=== PATIENT | female | born 1980 | race African-American/Black ===

== ENCOUNTER 2018-03-01 10:45 | Emergency (ER) | payer OTHER ==
[~2018-03-01] VITALS: Ht 170.2 cm; Wt 79.4 kg
[2018-03-01] MEDS ORDERED: KETOROLAC TROMETHAMINE 30 MG/ML VIAL IV STA (11:01)
[2018-03-01] MEDS ORDERED: HYDROCODONE/APAP 10MG-325MG TAB PO ONE (11:15)
[2018-03-01] MEDS ORDERED: CYCLOBENZAPRINE HCL 10 MG TAB PO ONE (11:15)
[2018-03-01 11:45] LABS: BASOPHILS % 0.3 % (0.0-1.0); EOSINOPHILS # (AUTO) 0.1 (0.0-0.4); EOSINOPHILS % 1.3 % (0.0-6.0); HEMATOCRIT 33.2 % (34.2-44.1); HEMOGLOBIN 10.5 g/dL (12.0-16.0); LYMPHOCYTES # (AUTO) 2.1 (1.0-3.2); MEAN CORPUSCULAR HEMOGLOBIN 23.4 pg (28-32); MEAN CORPUSCULAR HGB CONC 31.6 g/dL (31-35); MEAN CORPUSCULAR VOLUME 73.9 fL (81-99); MONOCYTES # (AUTO) 0.6 (0.2-0.8); MONOCYTES % 9.2 % (4.4-11.3); NEUTROPHILS # (AUTO) 3.5 (2.1-6.9); PLATELET COUNT 316 x10e3/uL (140-360); RED BLOOD COUNT 4.49 x10e6/uL (3.6-5.1); RED CELL DISTRIBUTION WIDTH 15.9 % (11.7-14.4)
[2018-03-01 12:01] LABS: ALANINE AMINOTRANSFERASE 14 IU/L (0-55); ALBUMIN 3.5 g/dL (3.5-5.0); ALKALINE PHOSPHATASE 62 IU/L (40-150); ANION GAP 11.2 mmol/L (8-16); BLOOD UREA NITROGEN 6 mg/dL (7-26); BUN/CREATININE RATIO 8 (6-25); CARBON DIOXIDE 24 mmol/L (22-29); CHLORIDE 111 mmol/L (98-107); CREATINE KINASE 233 IU/L (29-168); CREATININE, SERUM 0.76 mg/dL (0.57-1.11); EST GLOMERULAR FILTRATION RATE > 60 ML/MIN (60-); GLUCOSE 88 mg/dL (74-118); POTASSIUM 4.2 mmol/L (3.5-5.1); SODIUM 142 mmol/L (136-145)
[2018-03-01] MEDS ORDERED: IOPAMIDOL 370 MG/ML 200 ML INFUS..BTL INJ ONE (14:13)
[2018-03-01] MEDS ORDERED: SODIUM CHLORIDE 0.9% 50ML 50 ML ONE (14:13)
--- NOTE | 2018-03-01 14:53 | Diagnostic Imaging Report ---
PROCEDURE: CT scan of the chest WITH intravenous contrast, using PE protocol. TECHNIQUE: The chest was scanned utilizing a multidetector helical scanner from the lung apex through the level of the adrenal glands after the IV administration of 75 cc of Isovue 370 with special concentration in the pulmonary arteries. Coronal and sagittal multiplanar reformations were obtained. COMPARISON: [facility], , CHEST 2 VIEWS, 03/01/2018, 10:59. INDICATIONS: CHEST PAIN FINDINGS: Lines/tubes: None. Lungs and Airways: No filling defects in the main, right or left pulmonary arteries to the segmental level to suggest pulmonary embolism. Minimal bilateral lower lobe compressive atelectasis. No consolidations, masses, or nodules. Airways are clear, without endobronchial lesions. Pleura: Trace bilateral pleural effusions. No pneumothorax. Heart and mediastinum: Thyroid is unremarkable. Heart size is normal. No pericardial effusion. Main pulmonary artery is normal in caliber, measuring 2.9 cm. Lymph nodes: No mediastinal, hilar, or axillary adenopathy. Abdomen: Limited contrast-enhanced views of the upper abdomen show no abnormality within the visualized liver, spleen, pancreas, or kidneys. The adrenal glands are normal. Bones: No acute bony abnormalities. No aggressive lytic lesions. Soft tissues are unremarkable. IMPRESSION: 1. no CT evidence of pulmonary embolism. 2. Trace bilateral pleural effusions with minimal bilateral lower lobe compressive atelectasis. No consolidations or pulmonary opacities are noted. This may be the sequela of prior inflammation, such as pleurisy, in the appropriate clinical setting Derrick Smallwood M.D. Dictated by: Derrick Smallwood M.D. on 03/01/2018 at 13:16 Electronically approved by: Derrick Smallwood M.D. on 03/01/2018 at 13:16
--- NOTE | 2018-03-01 14:53 | Diagnostic Imaging Report ---
PROCEDURE: Frontal and lateral views of the chest. COMPARISON: None. INDICATIONS: CHEST PAIN FINDINGS: Lines/tubes: None. Lungs: The lungs are well inflated and clear. There is no evidence of pneumonia or pulmonary edema. Pleura: There is no pleural effusion or pneumothorax. Heart and mediastinum: The heart and the mediastinum are normal. Bones: No acute bony abnormality. IMPRESSION: 1. No acute cardiopulmonary abnormalities. Derrick Smallwood M.D. Dictated by: Derrick Smallwood M.D. on 03/01/2018 at 12:16 Electronically approved by: Derrick Smallwood M.D. on 03/01/2018 at 12:16
[2018-03-01 15:12] VITALS: BP 134/65
== END 2018-03-01 15:21 | disposition home or self-care (01) ==
LOC: ER 10:45
DX: R07.89 Other chest pain (principal)
CPT/HCPCS: 36415; 71046; 71260; 80053; 82550; 82553; 84484; 84702; 85025; 85379; 93005; 99284; J1885; Q9967